=== PATIENT | male | born 1990 | race African-American/Black ===

== ENCOUNTER 2021-11-05 13:44 | Emergency (ER) | payer SELFPAY ==
[2021-11-05 14:16] VITALS: BP 127/86; PULSE 94; TEMP 99.6; BMI 27.2
== END 2021-11-05 15:06 | disposition home or self-care (01) ==
LOC: FER 13:44
DX: S86.012A Strain of left Achilles tendon, initial encounter (principal); Y99.9 Unspecified external cause status
CPT/HCPCS: 73610-TC-LT-FY; 99283-25